=== PATIENT | female | born 1990 | race Caucasian/White ===

== ENCOUNTER 2023-03-20 07:09 | Emergency (ER) | payer MEDICAID, OTHER ==
[2023-03-20] MEDS ORDERED: Take Home: Acetaminophen/oxyCODONE 325-5 MG, 5 Tab Pack PO ONE (07:42)
== END 2023-03-20 08:00 | disposition home or self-care (01) ==
LOC: DL.ED 07:09
DX: S92.535A Nondisplaced fracture of distal phalanx of left lesser toe(s), initial encounter for closed fracture (principal); W20.8XXA Other cause of strike by thrown, projected or falling object, initial encounter
CPT/HCPCS: 73630-LT; 99282; 99283; A9270-GY